=== PATIENT | female | born 1990 | race Caucasian/White ===

== ENCOUNTER 2017-03-05 18:18 | Emergency (ER) | payer MEDICAID ==
[~2017-03-05] VITALS: Ht 162.6 cm; Wt 113.8 kg
[~2017-03-05 18:18] MED LIST: NORCO1 TA2 PO
[2017-03-05 21:48] VITALS: BP 131/90
== END 2017-03-05 21:48 | disposition home or self-care (01) ==
LOC: ED 18:18
DX: J20.9 Acute bronchitis, unspecified (principal)
CPT/HCPCS: J7613